=== PATIENT | male | born 1980 | race Two or more races ===

== ENCOUNTER 2019-10-18 10:28 | Day surgery (SDC) | payer OTHER | END 2019-10-18 15:55 | disposition home or self-care (01) | LOC: AMB-ENDOS 10:28 | PROVIDERS: ATTEND Surgery | DX: K62.89 Other specified diseases of anus and rectum (principal) ==

== ENCOUNTER 2019-11-26 07:57 | Outpatient (CLI) | payer OTHER | END 2019-11-26 08:25 | disposition home or self-care (01) | LOC: TOM 07:57 | PROVIDERS: ATTEND Surgery | DX: Z80.0 Family history of malignant neoplasm of digestive organs (principal) ==

== ENCOUNTER 2021-05-07 09:00 | Outpatient (CLI) | payer OTHER | END 2021-05-07 09:15 | disposition home or self-care (01) | LOC: PPH VACUNA 09:00 | PROVIDERS: ATTEND Emergency Medicine Pediatric Emergency Medicine | DX: Z23 Encounter for immunization (principal) ==